=== PATIENT | female | born 1980 | race Caucasian/White ===

== ENCOUNTER 2023-02-07 02:48 | Emergency (ER) | payer OTHER, SELFPAY ==
[2023-02-07] VITALS (31 sets, daily range): BP systolic 113–140; BP diastolic 63–82; PULSE 14–68; RESP 16–58; TEMP 36.6; O2SAT 78–99
--- NOTE | 2023-02-07 02:45 | RT.EKG_ITS ---
APPROVED REPORT Exam: Resting ECG Reason for Exam: confusion Patient Location: E HR:61 bpm ECG Measurements Heart Rate 61 AXIS CO 150 P 61 QRSd 100 QRS 2 QT 425 T 59 QTc 430 Conclusion Sinus rhythm...normal P axis, V-rate 60- 99 Physician: no stemi
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
[2023-02-07 03:25] LABS: BE (Venous) 6 mmol/L (-2-3); HCO3 (Venous) 30 mmol/L (23-28); O2 Sat (Venous) 56 %; TCO2 (Venous) 28 mmol/L (24-29); pCO2 (Venous) 49 mmHg (41-51); pO2 (Venous) 30 mmHg
[2023-02-07] MEDS: Normal Saline 500 ML IV (03:25)
[2023-02-07 03:28] LABS: Abs Immature Grans 0.04 10^3/uL (0.0-0.06); Absolute Basophil Count 0.08 10^3/uL (0.0-0.2); Absolute Eosinophil Count 0.24 10^3/uL (0.0-0.7); Absolute Lymphocyte Count 2.55 10^3/uL (1.2-3.4); Absolute Monocyte Count 0.49 10^3/uL (0.1-0.8); Absolute Neutrophil Count 7.47 10^3/uL (1.2-6.7); Basophils % 0.7; Eosinophils % 2.2; HCT 33.1 % (36.0-46.0); Immature Grans % 0.4; Lymphocytes % 23.5; MCH 32.5 pg (27.0-33.0); MCHC 33.2 % (32.0-36.0); MCV 98 fL (80-95); MPV 9.5 fL (8.0-11.0); Monocytes % 4.5; Neutrophils % 68.7; Platelet Count 321 10^3/uL (130-400); RBC 3.38 10^6/uL (3.93-5.22); RDW 14.6 % (11.7-14.6); RDW-SD 52.2 fL; WBC 10.87 10^3/uL (4.4-10.8)
[2023-02-07 03:37] LABS: Ammonia 12 umol/L (11-32)
[2023-02-07 03:39] LABS: PTT Activated 24.9 sec (21.5-31.9)
[2023-02-07 03:46] LABS: Salicylate < 2.8 mg/dL (<2.8)
[2023-02-07 03:48] LABS: Acetaminophen < 2 ug/mL (10-30)
[2023-02-07 03:51] LABS: ALT 20 U/L (14-59); AST 20 U/L (15-37); Albumin 3.2 g/dL (3.4-5.0); Alkaline Phosphatase 96 U/L (46-116); Anion Gap 7.5 mmol/L (3-11); BUN 8 mg/dL (7-18); Bilirubin, Total 0.2 mg/dL (0.2-1.0); CO2 30.5 mmol/L (21.0-32.0); CREATININE 0.7 mg/dL (0.55-1.02); Calcium 8.9 mg/dL (8.5-10.1); Chloride 95 mmol/L (98-107); Estimated GFR 109.98 (mL/min/1.73m2); Glucose 111 mg/dL (74-106); Potassium 3.8 mmol/L (3.5-5.1); Prothrombin Time < 8.9 sec (9.3-11.0); Sodium 133 mmol/L (136-145); TSH (W/Ref FT4) 5.27 uIU/mL (0.36-3.74)
[2023-02-07 03:52] LABS: ETHANOL BLOOD < 3.0 mg/dL (<10); Troponin I < 50 ng/L (<or=60)
[2023-02-07] MEDS: Omnipaque 350 MG/ML 100 ML BTL IJ (03:57)
[2023-02-07] MEDS: Normal Saline - Diluent 50 ML VIAL IJ (03:57)
[2023-02-07] MEDS: Normal Saline Flush 10 ML SYR IVP (03:58)
[2023-02-07 04:09] LABS: COVID-19 PCR Negative (Negative); Influenza A PCR Negative (Negative); Influenza B PCR Negative (Negative); RSV PCR Negative (Negative)
[2023-02-07 04:09] LABS: FREE T4 0.94 ng/dL (0.76-1.46)
[2023-02-07 04:10] LABS: Source Nasopharynx
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
[2023-02-07 06:14] LABS: Bilirubin Negative (Negative); Blood Negative (Negative); Clarity Clear (Clear); Glucose Negative (Negative); Ketones Negative (Negative); Leukocyte Esterase Negative (Negative); Nitrite Negative (Negative); Urobilinogen 0.2 mg/dL (Up to 0.2); pH 7.5 (5-8)
[2023-02-07 06:48] LABS: *AMPHETAMINES SCREEN URINE Negative (Negative); *BARBITURATES SCREEN URINE Negative (Negative); *BENZODIAZEPINES SCREEN URINE Negative (Negative); Cannabinoids THC Positive (Negative); Cocaine Screen,Urine Negative (Negative); METHADONE URINE SCREEN Negative (Negative); OPIATES URINE SCREEN Negative (Negative)
[2023-02-07 06:54] LABS: Troponin I < 50 ng/L (<or=60)
[2023-02-07 06:54] LABS: Tricyclic Antidepressants Negative (Negative)
--- NOTE | 2023-02-07 07:09 | NUR.NOTE ---
Nursing Note: Patient meeting with BRIELLE on the tablet. JULIANEB
--- NOTE | 2023-02-07 10:29 | ED.PROG_ITS ---
Date of service: 02/07/23 Time of Service: 10:30 Medical Decision Making pt camelia without complaints on my exam, doesn't disclose her reasoning why she came to [place] but knows where she is as well as the year and time, she has no si/hi. Met with [facility] and cleared her. She is stable for d/c, advised to f/u with her pcp, return precautions given Sign Out Sign Out Data: Sign Out Comment: Patient drove up from [place], is slightly confused. Concern for schizophrenic episode. Pending mental health assessment. Patient is medically cleared. Last updated by Jason Mckeon DO at 02/07/23 07:40 Discharge Plan Disposition Patient Disposition: Home Condition: Stable Discharge Details Clinical Impression: Acute confusion Primary Care Provider: Unknown,Unknown ED Provider: George Jamison Home Meds and New Rx's Prescriptions: Continued potassium chloride [K-Tab] 10 mEq Tablet Extended Release PO Patient Comments: patient unsure of dosing multivitamin Capsule 1 cap DAILY buspirone 15 mg Tablet 15 mg TID calcium 100 mg Capsule 100 mg PO DAILY cyanocobalamin (vitamin B-12) 25 mcg Tablet PO DAILY Patient Comments: patient unsure of dosing ergocalciferol (vitamin D2) 25,000 unit Capsule 50,000 unit PO QWEEK magnesium Tablet 1 tab PO DAILY Patient Comments: patient states 2400 mg daily thyroid (pork) [[place] Thyroid] 60 mg Tablet 60 mg PO DAILY Discharge Instructions Additional Instructions: your blood work did not show concerning findings nor did your cat scans you met with a mental health clinician who cleared you for discharge follow up with your primary care provider within 1 week if you feel more ill, have difficulty breathing or fevers return to the emergency department
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
--- NOTE | 2023-02-07 18:22 | NUR.NOTE ---
Nursing Note: Renato Bruno father [phone]
== END 2023-02-07 10:52 | disposition home or self-care (01) ==
PROVIDERS: Student in an Organized Health Care Education/Training Program; Emergency Provider Emergency Medicine
DX: R41.0 Disorientation, unspecified (principal); V47.0XXA Car driver injured in collision with fixed or stationary object in nontraffic accident, initial encounter; Y92.488 Other paved roadways as the place of occurrence of the external cause; M54.6 Pain in thoracic spine; M25.519 Pain in unspecified shoulder; Z90.49 Acquired absence of other specified parts of digestive tract; Z98.51 Tubal ligation status; R41.3 Other amnesia; R10.31 Right lower quadrant pain
CPT/HCPCS: 74177; 80053; 80307; 82805; 87637; 93005; 99285; 70450; 71260; 80320; 80329; 81003; 82140; 84439; 84443; 84484; 85025; 85610; 85730; 93010; 99284; J3490